=== PATIENT | male | born 1945 | race Caucasian/White ===

== ENCOUNTER → 2019-02-26 | Emergency (ER) | payer MEDICARE, OTHER ==
[~2019-02-26] VITALS: Ht 177.8 cm; Wt 77.1 kg
[~2019-02-26] MED LIST: ACID CONTROL150 MG PO; ARICEPT10 MG PO; COL-RITE100 MG PO; FLOMAX0.4 MG PO; LEVAQUIN500 MG PO; MIRTAZAPINE15 MG PO; SEROQUEL100 MG PO; ULTRAM50 MG PO
== END ==
LOC: ED 18:58
DX: R41.82 Altered mental status, unspecified (principal); N39.0 Urinary tract infection, site not specified; F03.90 Unspecified dementia, unspecified severity, without behavioral disturbance, psychotic disturbance, mood disturbance, and anxiety; K21.9 Gastro-esophageal reflux disease without esophagitis; F32.9 Major depressive disorder, single episode, unspecified; F41.9 Anxiety disorder, unspecified; Z88.5 Allergy status to narcotic agent; Z79.899 Other long term (current) drug therapy
CPT/HCPCS: 70450; 80053; 81001; 85025; 87088; 96365; 99285-25; J1956

== ENCOUNTER 2019-06-04 16:48 | Emergency (ER) | payer MEDICARE, OTHER ==
[~2019-06-04] VITALS: Ht 177.8 cm; Wt 77.1 kg
--- OUTSIDE RECORDS SUMMARY | 2019-06-04 16:52 | XMS ---
PreManage Notification: TJ CARTER Security Cardiology Nurse Practitioner Events No recent Security Events currently on file [facility] There are no care providers on record at this time. Edie has no Care Guidelines for this patient. Norma VISIT COUNT (12 MO.) 2 [facility] TOTAL 2 NOTE: Visits indicate total known visits. ED/UCC VISIT TRACKING (12 MO.) 06/04/2019 16:49 [facility] [place] TYPE: Emergency COMPLAINT: - FALL 02/26/2019 18:[address] [facility] [place] TYPE: Emergency COMPLAINT: - ALT LOC/POSS UTI DIAGNOSES: - Gastro-esophageal reflux disease without esophagitis - Unspecified dementia without behavioral disturbance - Urinary tract infection, site not specified - Other terminal operator (current) drug therapy - Altered mental status, unspecified - Anxiety disorder, unspecified - Major depressive disorder, single episode, unspecified - Allergy status to narcotic agent status INPATIENT VISIT TRACKING (12 MO.) No inpatient visits to display in this time frame [email or web address]
[2019-06-04] MEDS ORDERED: OLANZAPINE2.5 MG PO (17:06)
[2019-06-04] MEDS ORDERED: OLANZAPINE5 MG PO (17:09)
== END 2019-06-05 01:43 | disposition home or self-care (01) ==
LOC: ED 16:48
DX: S06.370A Contusion, laceration, and hemorrhage of cerebellum without loss of consciousness, initial encounter (principal); S01.01XA Laceration without foreign body of scalp, initial encounter; W18.30XA Fall on same level, unspecified, initial encounter; F03.90 Unspecified dementia, unspecified severity, without behavioral disturbance, psychotic disturbance, mood disturbance, and anxiety; F32.9 Major depressive disorder, single episode, unspecified; K21.9 Gastro-esophageal reflux disease without esophagitis; Z88.5 Allergy status to narcotic agent; Z79.899 Other long term (current) drug therapy; Z79.891 Long term (current) use of opiate analgesic
CPT/HCPCS: 12001; 70450; 99283-25

== ENCOUNTER 2019-07-01 14:37 | Emergency (ER) | payer MEDICARE, OTHER ==
[~2019-07-01] VITALS: Ht 177.8 cm; Wt 65.5 kg
[~2019-07-01 14:37] MED LIST changes: +MEGESTROL ACETA40 MG PO; +OLANZAPINE2.5 MG PO; +OLANZAPINE5 MG PO; +SILVER SULFADIA50 GM TOP
--- OUTSIDE RECORDS SUMMARY | 2019-07-01 14:40 | XMS ---
PreManage Notification: TJ CARTER Security Registered Nurse Cardiovascular Icu Events No recent Security Events currently on file CRITERIA MET - [facility] - 2 Visits in 30 Days CARE PROVIDERS ONEIL ERICKSON [facility] 06/14/2019-Current PHONE: Unknown Edie has no Care Guidelines for this patient. Norma VISIT COUNT (12 MO.) 4 [facility] TOTAL 4 NOTE: Visits indicate total known visits. ED/UCC VISIT TRACKING (12 MO.) 07/01/2019 14:37 [facility] [place] TYPE: Emergency COMPLAINT: - GLF HEAD INJURY 06/13/2019 13:31 [facility] [place] TYPE: Emergency COMPLAINT: - ALOC 06/04/2019 16:49 [facility] [place] TYPE: Emergency COMPLAINT: - FALL DIAGNOSES: - Fall on same level, unspecified, initial encounter - Allergy status to narcotic agent status - Unspecified dementia without behavioral disturbance - Other fci (current) drug therapy - jail (current) use of opiate analgesic - Gastro-esophageal reflux disease without esophagitis - Contus/lac/hem crblm w/o loss of consciousness, init - Laceration without foreign body of scalp, initial encounter - Major depressive disorder, single episode, unspecified 02/26/2019 18:59 [facility] [place] TYPE: Emergency COMPLAINT: - ALT LOC/POSS UTI DIAGNOSES: - Gastro-esophageal reflux disease without esophagitis - Unspecified dementia without behavioral disturbance - Urinary tract infection, site not specified - Other terminal block assembler (current) drug therapy - Altered mental status, unspecified - Anxiety disorder, unspecified - Major depressive disorder, single episode, unspecified - Allergy status to narcotic agent status INPATIENT VISIT TRACKING (12 MO.) 06/13/2019 13:32 [facility] [place] TYPE: Observation COMPLAINT: - HYPERNATREMIA DIAGNOSES: - Encounter for immunization - Other fci (current) drug therapy - Chronic pain syndrome - Repeated falls - Dorsalgia, unspecified - Dementia with Lewy bodies - Acute kidney failure, unspecified - Dementia in oth diseases classd elswhr w/o behavrl disturb - Anxiety disorder, unspecified - Allergy status to narcotic agent status - Lng trm (crnt) use of agnt aff estrog recpt \T\ estrog levels - Major depressive disorder, single episode, unspecified - Dehydration - Do not resuscitate - Hyperosmolality and hypernatremia - Gastro-esophageal reflux disease without esophagitis - Nonspec elev of levels of transamns \T\ lactic acid dehydrgnse - Benign prostatic hyperplasia without lower urinry tract symp [email or web address]
== END 2019-07-01 16:03 | disposition home or self-care (01) ==
LOC: ED 14:37
PROC: 0HQ0XZZ Repair Scalp Skin, External Approach (ICD-10-PCS; principal; 2019-07-01)
DX: S01.01XA Laceration without foreign body of scalp, initial encounter (principal); F03.90 Unspecified dementia, unspecified severity, without behavioral disturbance, psychotic disturbance, mood disturbance, and anxiety; K21.9 Gastro-esophageal reflux disease without esophagitis; F32.9 Major depressive disorder, single episode, unspecified; F41.9 Anxiety disorder, unspecified; Z88.5 Allergy status to narcotic agent; Z79.899 Other long term (current) drug therapy; W18.30XA Fall on same level, unspecified, initial encounter
CPT/HCPCS: 12002; 99283-25